=== PATIENT | male | born 1965 | race Caucasian/White ===

== ENCOUNTER 2022-10-06 09:10 | Day surgery (SDC) | payer OTHER, SELFPAY ==
--- NOTE | 2022-10-05 14:14 | HO.ANESPROP2 ---
Documented by User: Melissa Nguyen NP 10/05/22 14:14 HPI - Anesthesia Eval Consult details Narrative: 57yo M for Upper Endoscopy and Colonoscopy [facility] Past Medical History Medical History (Updated 10/05/22 @ 13:18 by Little Ross RN) GERD (gastroesophageal reflux disease) HTN (hypertension) Osteoarthritis Spinal stenosis Surgical History Surgical History (Updated 10/05/22 @ 13:18 by Little Ross RN) H/O arthroscopy of knee H/O colonoscopy H/O esophagogastroduodenoscopy H/O hand surgery H/O right inguinal hernia repair Social History Social History Patient Tobacco Use Status: Former Tobacco user Quit Date: 1986 Use of substances other than those prescribed or required for medical reasons: No Are you DNR?: No Advance Directives: No Advance Directives Information Provided: Yes Meds Allergies Allergy/AdvReac Type Severity Reaction Status Date / Time tetracycline Allergy Hives Verified 10/05/22 14:02 Home Medications Medication Instructions Recorded Confirmed Last Taken Type desonide 0.05 % topical cream appl topical 10/05/22 10/05/22 Unknown History lisinopril 10 mg tablet 1 tab PO DAILY 10/05/22 10/05/22 Unknown History omeprazole 20 mg capsule,delayed 1 cap PO DAILY 10/05/22 10/05/22 Unknown History release Exam Exam Date and Time: October 05, 20221413 Assessment and Plan Assessment Anesthesia Assessment: Chart Reviewed Documented by User: Yeyo Rasheed MD 10/06/22 12:12 [facility] Past Medical History Medical History (Updated 10/05/22 @ 13:18 by Little Ross RN) GERD (gastroesophageal reflux disease) HTN (hypertension) Osteoarthritis Spinal stenosis Family History Family history of problems with anesthesia: No Surgical History Surgical History (Updated 10/05/22 @ 13:18 by Little Ross RN) H/O arthroscopy of knee H/O colonoscopy H/O esophagogastroduodenoscopy H/O hand surgery H/O right inguinal hernia repair History of Problems with Anesthesia: No Social History Social History Patient Tobacco Use Status: Former Tobacco user Quit Date: 1986 Use of substances other than those prescribed or required for medical reasons: No Are you DNR?: No Advance Directives: No Advance Directives Information Provided: Yes Meds Allergies Allergy/AdvReac Type Severity Reaction Status Date / Time tetracycline Allergy Hives Verified 10/05/22 14:02 Home Medications Medication Instructions Recorded Confirmed Last Taken Type desonide 0.05 % topical cream appl topical 10/05/22 10/05/22 Unknown History lisinopril 10 mg tablet 1 tab PO DAILY 10/05/22 10/05/22 Unknown History omeprazole 20 mg capsule,delayed 1 cap PO DAILY 10/05/22 10/05/22 Unknown History release Exam Airway Mallampati Class: I TM Dist: >3cm Neck ROM: Full Heart: ok Lungs: ok Assessment and Plan Assessment Anesthesia Assessment: Anesthesia Plan Discussed Final Anesthetic Review Family History of Problems with Anesthesia: No History of Problems with Anesthesia: No NPO: Yes ASA Class: II Final Preanesthetic Review: No Changes in Pt Med Stat, Meds/Allgs Chart Reviewed, Consent Obtained/Reviewed and Anes Risks/Benef Reviewed Patient Risk: Low Procedure Risk: Intermediate Anesthetic Plan Anesthetic Plan: MAC: and Agree w/ Assess. and Plan Disposition: Standard PACU
[2022-10-06 10:59] VITALS: BMI 28.0
[2022-10-06 11:02] VITALS: BP 138/87; PULSE 57; RESP 18; TEMP 36.8; O2SAT 97
[2022-10-06] MEDS: Lactated Ringers 1,000 ML 100 ML IVCONT (11:18)
--- NOTE | 2022-10-06 12:01 | P.HPSUR_ITS ---
Pre-Procedural Eval Section A Date of Service: 10/06/22 The patient is an INPATIENT: No Changes since office visit: No Cold of Flu in the past 2 weeks, No New Medical Problems, No Changes in Medication and No Patient answered all questions The History & Physical has been completed within 30 days and I have reviewed it.: Yes Section B Chief Complaint: Dysphagia, unspecified Details of Present Illness: see H&P no changes Relevant Family History (Specify if Yes): No Relevant Social History: None Present Medications: see Short Stay Collaborative assessment Medical History: No relevant PMH History of Previous Operations: No relevant previous surgery Allergies: Allergies Allergy/AdvReac Type Severity Reaction Status Date / Time tetracycline Allergy Hives Verified 10/05/22 14:02 Review of Systems Sugical H&P ROS: Negative: Constitution, Cardiovascular, Respiratory, Neurological, Psychiatric, Hem-Onc, Allergic/Immunologic, Gastrointestinal, Genitourinary, Musculoskeletal, Integumentary, Endocrine and Eyes/Ears/Nose/Throat Exam Surgical H&P Exam: Normal: HEENT, Normal: Heart, Normal: Lungs, Normal: Extremit ies, Normal: Abdomen, Normal: Skin and Normal: Neurological Plan Diagnosis/Plan: Unchanged I have reviewed the history and physical and performed a pertinent physical examination on my patient. No changes have occurred unless specified. Time Spent With Patient Time: Total time managing care of this patient today ____ minutes.
[2022-10-06 13:04] VITALS: BP 121/79; PULSE 51; RESP 20; TEMP 36.2; O2SAT 98
--- NOTE | 2022-10-06 13:13 | P.BOP_ITS ---
Brief Operative Note Date of Service: 10/06/22 Pre-op diagnosis: dysphagia screening Post-op diagnosis: same Procedure: egd colonoscopy Surgeon: Yoel Cannon Anesthesia: MAC and other Was an [employer] Engine [employer] Consultant used for this Procedure?: No Estimated blood loss (mL): 2 Pathology: other Condition: stable Disposition: PACU
[2022-10-06 13:20] VITALS: BP 117/70; PULSE 50; RESP 16; O2SAT 98
[2022-10-06 13:37] VITALS: BP 122/77; PULSE 48; RESP 16; TEMP 36.3; O2SAT 97
--- NOTE | 2022-10-06 23:51 | OP_ITS ---
SURGEON: Yoel Cannon MD INDICATIONS: 1. Dysphagia. 2. Colon cancer screening. PREOPERATIVE DIAGNOSIS: POSTOPERATIVE DIAGNOSIS: PROCEDURE PERFORMED: ESTIMATED BLOOD LOSS: COMPLICATIONS: ANESTHESIA: ASSISTANTS: SPECIMENS: PROCEDURE: Upper endoscopy with biopsy, colonoscopy to the terminal ileum. MEDICATIONS: Monitored anesthesia care. PROCEDURE DESCRIPTION: A history and physical was performed. The procedure was performed on 10/06/2022. The risks and benefits of the procedure were explained to the patient. Informed consent was obtained. The patient was placed in the left lateral decubitus position. The Olympus video gastroscope was introduced into the esophagus, stomach, and duodenum. Examination was performed. The scope was removed. He was repositioned for colonoscopy. A digital rectal exam was performed, was found to be normal. The Olympus pediatric video colonoscope was introduced into the rectum and advanced to the cecum without difficulty. The cecum was identified by transillumination, palpation, and identification of ileocecal valve. Examination was performed. The scope was removed. He tolerated both procedures well and was returned to recovery area in stable condition. FINDINGS: Upper endoscopy: 1. Esophagus: The esophagus was normal. There was no stricture. Biopsies were obtained from the EG junction. 2. Stomach: The stomach showed no evidence of masses, ulcers, or polyps. Antral biopsies were obtained to evaluate for H pylori. 3. Duodenum: The bulb and 2nd portion were normal. Colonoscopy: The terminal ileum was examined and appeared normal. The visualized colonic mucosa was normal. The quality of the prep was good. No polyps were identified. Retroflexed examination showed moderate-sized internal hemorrhoids. IMPRESSION: 1. Dysphagia, normal upper endoscopy. 2. Normal colonoscopy. RECOMMENDATION: 1. Follow up the biopsy results. 2. Repeat colonoscopy is recommended in 10 years for average risk individuals. MD TRAY Hinson/AMALIAL / [id number]
== END 2022-10-06 14:21 | disposition home or self-care (01) ==
PROVIDERS: PCP Internal Medicine; Visit Provider Internal Medicine Gastroenterology
PROC: (CPT 45378; principal; 2022-10-06 10:40)
DX: Z12.11 Encounter for screening for malignant neoplasm of colon (principal); Z83.71 Family history of colonic polyps; K64.8 Other hemorrhoids; R13.10 Dysphagia, unspecified; I10 Essential (primary) hypertension; K21.9 Gastro-esophageal reflux disease without esophagitis; Z79.899 Other long term (current) drug therapy; Z88.1 Allergy status to other antibiotic agents; Z87.891 Personal history of nicotine dependence
CPT/HCPCS: 45378; 43239; 88305; 88342; J3010